=== PATIENT | female | born 1955 | race Caucasian/White ===

== ENCOUNTER → 2016-11-27 | Outpatient (CLI) | payer BC | END | disposition home or self-care (01) | LOC: SURG 10:14 | PROVIDERS: ATTEND Anesthesiology Pain Medicine | DX: M51.36 Other intervertebral disc degeneration, lumbar region (principal); M47.816 Spondylosis without myelopathy or radiculopathy, lumbar region; G89.4 Chronic pain syndrome; M79.1 Myalgia; F11.20 Opioid dependence, uncomplicated | CPT/HCPCS: 99204 ==

== ENCOUNTER → 2017-05-19 | Outpatient (CLI) | payer BC | END | disposition home or self-care (01) | LOC: SURG 13:46 | PROVIDERS: ATTEND Anesthesiology Pain Medicine | DX: M51.36 Other intervertebral disc degeneration, lumbar region (principal); M47.816 Spondylosis without myelopathy or radiculopathy, lumbar region; F41.9 Anxiety disorder, unspecified | CPT/HCPCS: 99204 ==

== ENCOUNTER 2017-11-06 19:04 | Emergency (ER) | payer MEDICARE, BC ==
[~2017-11-06] VITALS: Ht 157.5 cm; Wt 76.2 kg
[2017-11-06 19:10] VITALS: BP 165/68
--- NOTE | 2017-11-06 19:12 | ED.ADGEN ---
Past History Past Medical History: Other Adult General Chief Complaint Chief Complaint ".. I got the rash under my breast and down here under my belly fat .. and groin area... I ve been putting burnt flour on it.. but it not gone away... and I got this breast nodule under this lt. breast.. it been there more than 10 yrs.. " HPI HPI Patient is a 61 year old female who presents with above hx and complaints Lexie like rash and inflammation under both dependent breast, abdomen pannus, and groin area. Patient denies any history of diabetes. Patient has been applying [place] flower to area. Patient denies any history of immunosuppression. Patient had travel or specific ill contacts. Patient had this rash periodically in the past. Patient also concerned about a nodule approximately 1 cm under left breast that has been there for more than 10 years. Patient has had cellulitis in the past. Patient is unable take sulfa or Bactrim because of allergy. Patient also expresses an allergy to penicillin. Patient has taken Keflex in the past without problems. Patient normally follows with Dr. Cervantes Review of Systems Review of Systems Constitutional: Denies fever or chills [] Eyes: Denies change in visual acuity, redness, or eye pain [] HENT: Denies nasal congestion or sore throat [] Respiratory: Denies cough or shortness of breath []. Complains of left breast nodule Cardiovascular: No additional information not addressed in HPI [] GI: Denies abdominal pain, nausea, vomiting, bloody stools or diarrhea [] : Denies dysuria or hematuria [] Musculoskeletal: Denies back pain or joint pain [] Integument: Complaints of rash . Neurologic: Denies headache, focal weakness or sensory changes [] Endocrine: Denies polyuria or polydipsia [] All other systems were reviewed and found to be within normal limits, except as documented in this note. Family History Family History Noncontributory Current Medications Current Medications Current Medications Medications (Trade) Dose Ordered Sig/Deepali Start Time Stop Time Status Last Admin Dose Admin Cephalexin HCl (Keflex) 500 mg 1X ONCE 11/06/17 19:45 11/06/17 19:47 DC 11/06/17 20:46 500 MG Fluconazole (Diflucan) 100 mg 1X ONCE 11/06/17 19:45 11/06/17 19:46 DC 11/06/17 20:46 100 MG Allergies Allergies Allergies Coded Allergies Type Severity Reaction Last Updated Verified Penicillins Allergy Intermediate Rash 11/06/17 Yes Sulfa (Sulfonamide Antibiotics) Allergy Intermediate 11/06/17 Yes codeine Allergy Intermediate 11/06/17 Yes meperidine Allergy Intermediate 11/06/17 Yes morphine Allergy Intermediate 11/06/17 Yes tramadol Allergy Intermediate 11/06/17 Yes Physical Exam Physical Exam Constitutional: Moderately acute distress, non-toxic appearance. [] HENT: Normocephalic, atraumatic, bilateral external ears normal, oropharynx moist, no oral exudates, nose normal. [] Eyes: PERRLA, EOMI, conjunctiva normal, no discharge. [] Neck: Normal range of motion, no tenderness, supple, no stridor. [] Cardiovascular:Heart rate regular rhythm, no murmur [] Lungs & Thorax: Bilateral breath sounds equal apex with scattered wheezes on auscultation []left breast has 1 cm nodule at 6:00. There is no dimpling of skin of breast. Axillary adenopathy.. No discharge from nipple. Does have area of cellulitis as per history of present illness Abdomen: Bowel sounds normal, soft, no tenderness, no masses, no pulsatile masses. [] Obese. Skin: Warm, dry, no erythema, Lexie like rash/cellulitis as per history of present illness Back: No tenderness, no CVA tenderness. [] Extremities: No tenderness, no cyanosis, no clubbing, ROM intact, no edema. [] Neurologic: Alert and oriented X 3, normal motor function, normal sensory function, no focal deficits noted. [] Psychologic: Affect anxious, judgement normal, mood normal. [] Current Patient Data Vital Signs Vital Signs Date Time Temp Pulse Resp B/P (MAP) Pulse Ox O2 Delivery O2 Flow Rate FiO2 11/06/17 19:10 98.0 97 16 98 Room Air Lab Results Laboratory Tests Test 11/06/17 20:30 Urine Collection Type Void Urine Color Straw Urine Clarity Clear Urine pH 6.5 Urine Specific [place] 1.010 Urine Protein Neg (NEG-TRACE) Urine Glucose (UA) Neg mg/dL (NEG) Urine Ketones (Stick) Neg mg/dL (NEG) Urine Blood Neg (NEG) Urine Nitrite Neg (NEG) Urine Bilirubin Neg (NEG) Urine Urobilinogen Dipstick 0.2 mg/dL (0.2 mg/dL) Urine Leukocyte Esterase Neg (NEG) Urine RBC 0 /HPF (0-2) Urine WBC Occ /HPF (0-4) Urine Squamous Epithelial Cells Few /LPF Urine Bacteria Few /HPF (0-FEW) EKG EKG [] Radiology/Procedures Radiology/Procedures [] Course & Med Decision Making Course & Med Decision Making Pertinent Labs and Imaging studies reviewed. (See chart for details) Patient to wash areas of rash at least 4 times a day. With soap and water. After washing apply Lotrisone cream twice a day. Patient take Keflex 500 mg 3 times a day for 7 days. Patient to take Diflucan for 3 days after completing the Keflex. Patient follow-up primary care. Patient return if any concerns. Recommend patient get a lumpectomy of noted under left breast. Patient must follow-up her primary care. [] Final Impression Final Impression 1. Skin Rash - breast and pannus cleavage- Suspect Yeast 2. Breast nodule- Present > 10 yrs. 3. Dysuria Dragon Disclaimer Dragon Disclaimer This electronic medical record was generated, in whole or in part, using a voice recognition dictation system. YANCY REA MD Nov 06, 2017 19:12
[2017-11-06] MEDS ORDERED: FLUCONAZOLE 100 MG TABLET. PO ONE (19:45)
[2017-11-06] MEDS ORDERED: CEPHALEXIN 250 MG CAPSULE PO ONE (19:45)
[2017-11-06] MEDS ORDERED: CEPH-264 PO (19:49)
[2017-11-06] MEDS ORDERED: FLUC100T7 PO (19:49)
[2017-11-06] MEDS ORDERED: CLOT15CR3 TP (19:49)
[2017-11-06 21:01] LABS: BACTERIA,URINE FEW /HPF (0-FEW); BILIRUBIN,URINE NEG (NEG); CLARITY,URINE CLEAR; COLOR,URINE STRAW; GLUCOSE,URINE NEG (NEG); NITRITE,URINE NEG (NEG); RBC,URINE 0 /HPF (0-2); SQUAMOUS EPITHELIAL CELL,UR FEW /LPF; UROBILINOGEN,URINE 0.2 mg/dL (0.2 mg/dL); WBC,URINE OCC /HPF (0-4)
== END 2017-11-06 21:27 | disposition home or self-care (01) ==
LOC: ER 19:04
DX: N63.20 Unspecified lump in the left breast, unspecified quadrant (principal); R21 Rash and other nonspecific skin eruption; R30.0 Dysuria; Z88.0 Allergy status to penicillin; Z88.2 Allergy status to sulfonamides; Z88.5 Allergy status to narcotic agent; Z88.6 Allergy status to analgesic agent; Z88.8 Allergy status to other drugs, medicaments and biological substances
CPT/HCPCS: 81001; 99283

== ENCOUNTER → 2017-11-30 | Outpatient (CLI) | payer MEDICARE, BC ==
[2017-11-06 19:10] VITALS: BP 165/68
[~2017-11-30] MED LIST: CEPH-264 PO; CLOT15CR3 TP; FLUC100T7 PO
--- NOTE | 2017-12-01 16:11 | RAD ---
DATE: 11/30/2017 EXAM: MAMMO [facility] SCREENING BILATERAL HISTORY: Routine screening COMPARISON: Baseline study This study was interpreted with the benefit of Computerized Aided Detection (CAD). Breast Density: FATTY The breast parenchyma is primarily fatty replaced. Breast parenchyma level density A. FINDINGS: 2-D and 3-D tomosynthesis imaging was performed in CC and MLO projections. On the cc projection there is a dense nodule partially visualized far posteriorly in the medial aspect of the left breast. The CC tomosynthesis images indicates that it lies inferiorly. This is not visible on the oblique view, apparently due to its far posterior position. No other unusual breast densities are seen. Benign type calcifications are present in both breasts. No suspicious microcalcifications are evident. IMPRESSION: Posteromedial left breast nodule. Diagnostic mammograms including a straight mediolateral view in an attempt to visualize the posterior extent of this nodule is suggested. Sonographic evaluation will also likely be indicated. BI-RADS CATEGORY: 0 INCOMPLETE: NEEDS ADDITIONAL IMAGING EVALUATION AND/OR PRIOR MAMMOGRAMS FOR COMPARISON. RECOMMENDED FOLLOW-UP: ADD ADDITIONAL IMAGING PQRS compliance statement: Patient information was entered into a reminder system with a target due date for the next mammogram. Mammography is a sensitive method for finding small breast cancers, but it does not detect them all and is not a substitute for careful clinical examination. A negative mammogram does not negate a clinically suspicious finding and should not result in delay in biopsying a clinically suspicious abnormality. "Our facility is accredited by the [employer] Mammography Program."
== END | disposition home or self-care (01) ==
LOC: MAMMO 12:44
PROVIDERS: ATTEND Physician Assistant
DX: Z12.31 Encounter for screening mammogram for malignant neoplasm of breast (principal); N63.24 Unspecified lump in the left breast, lower inner quadrant
CPT/HCPCS: 77063; 77067

== ENCOUNTER 2017-12-19 18:21 | Emergency (ER) | payer MEDICARE, BC ==
[~2017-12-19] VITALS: Ht 157.5 cm; Wt 76.2 kg
[2017-12-19 18:22] VITALS: BP 156/94
--- NOTE | 2017-12-19 18:28 | ED.ADGEN ---
Past History Past Medical History: Other Past Surgical History: Cholecystectomy Alcohol Use: None Drug Use: None Adult General Chief Complaint Chief Complaint ".. I broke a picture frame of my grand children and I put the glass in a trash bag... but I forgot I had the glass in it ... and I went to stuff some paper into the bag.. and cut my Rt wrist on the glass.. it bled like crazy at home. ..." HPI HPI Patient is a 62 year old female who presents with 6 cm, laceration to Rt. forearm. Pt. is right hand dominate. Pt. does not remember last tetanus. Pt. distal neurovascular intact. Ulnar, Median and Radial intact sensory and motor. Flexion and extension intact in hand. Capillary refill less than 2 seconds in finger tips. Does appear to cut into SQ tissue. Pt. normally follows with Dr. Cervantes. No hx immunosuppression. Once did get a rash with PCN, but has taken amoxicillin in past without problems. No recent travel or ill contacts. Review of Systems Review of Systems Constitutional: Denies fever or chills [] Eyes: Denies change in visual acuity, redness, or eye pain [] HENT: Denies nasal congestion or sore throat [] Respiratory: Denies cough or shortness of breath [] Cardiovascular: No additional information not addressed in HPI [] GI: Denies abdominal pain, nausea, vomiting, bloody stools or diarrhea [] : Denies dysuria or hematuria [] Musculoskeletal: Denies back pain or joint pain [] Integument: Denies rash or skin lesions []Complaints of Rt. wrist laceration. Neurologic: Denies headache, focal weakness or sensory changes [] Endocrine: Denies polyuria or polydipsia [] All other systems were reviewed and found to be within normal limits, except as documented in this note. Family History Family History Non-contributory Current Medications Current Medications Current Medications Medications (Trade) Dose Ordered Sig/Deepali Start Time Stop Time Status Last Admin Dose Admin Bupivacaine HCl (Sensorcaine Mpf 0.5%) 10 ml 1X ONCE 12/19/17 18:30 12/19/17 18:34 DC 12/19/17 18:30 10 ML Bupivacaine HCl (Sensorcaine Pf 0.75%) 10 ml STK-MED ONCE 12/19/17 18:56 12/19/17 18:57 DC Bupivacaine HCl/ Epinephrine Bitart (Sensorcain-Mpf Epi 0.5%-1:412259) 30 ml 1X ONCE 12/19/17 19:00 12/19/17 19:08 DC Cephalexin HCl (Keflex) 500 mg 1X ONCE 12/19/17 19:30 12/19/17 19:35 DC 12/19/17 19:31 500 MG Lidocaine HCl 20 ml 1X ONCE 12/19/17 18:30 12/19/17 18:34 DC 12/19/17 18:30 20 ML Lidocaine/ Epinephrine (Xylocaine 1%-Epi 1:100,000) 20 ml 1X ONCE 12/19/17 19:00 12/19/17 19:08 DC Neomycin/ Polymyxin/ Bacitracin (Triple Antibiotic Ointment) 4 pkt 1X ONCE 12/19/17 19:15 12/19/17 19:16 DC 12/19/17 19:10 4 PKT Neomycin/ Polymyxin/ Bacitracin (Triple Antibiotic) 4 ana 1X ONCE 12/19/17 19:00 12/19/17 19:14 DC Tetanus/ Diphtheria Toxoids Adsorbed (Tenivac Vial) 0.5 ml ONCE ONCE 12/19/17 18:30 12/19/17 18:34 DC 12/19/17 18:56 0.5 ML Allergies Allergies Allergies Coded Allergies Type Severity Reaction Last Updated Verified Penicillins Allergy Intermediate Rash 11/06/17 Yes Sulfa (Sulfonamide Antibiotics) Allergy Intermediate 11/06/17 Yes codeine Allergy Intermediate 11/06/17 Yes meperidine Allergy Intermediate 11/06/17 Yes morphine Allergy Intermediate 11/06/17 Yes tramadol Allergy Intermediate 11/06/17 Yes Physical Exam Physical Exam Constitutional: Moderately distressed, non-toxic appearance. [] HENT: Normocephalic, atraumatic, bilateral external ears normal, oropharynx moist, no oral exudates, nose normal. Red hair. Eyes: PERRLA, EOMI, conjunctiva normal, no discharge. [] Neck: Normal range of motion, no tenderness, supple, no stridor. [] Cardiovascular:Heart rate regular rhythm, no murmur [] Lungs & Thorax: Bilateral breath sounds equal at apexes with few scattered wheezes on auscultation [] Abdomen: Bowel sounds normal, soft, no tenderness, no masses, no pulsatile masses. [] Old surgery scars. Skin: Warm, dry, no erythema, no rash. [] Laceration Rt. wrist as per HPI. Back: No tenderness, no CVA tenderness. [] Extremities: No tenderness, no cyanosis, no clubbing, ROM intact, no edema. [] Neurologic: Alert and oriented X 3, normal motor function, normal sensory function, no focal deficits noted. [] Psychologic: Affect normal, judgement normal, mood normal. [] Current Patient Data Vital Signs Vital Signs Date Time Temp Pulse Resp B/P (MAP) Pulse Ox O2 Delivery O2 Flow Rate FiO2 12/19/17 18:22 97.6 109 20 99 Room Air EKG EKG [] Radiology/Procedures Radiology/Procedures My interpretation of forearm laceration shows soft tissue defect. No obvious glass. ( Pt. still informed glass could be still missed. )[] Course & Med Decision Making Course & Med Decision Making Pertinent Labs and Imaging studies reviewed. (See chart for details) Procedure note: Rings removed. Wound washed surgical soap and water. Irrigated extensively in range of motion with normal saline. 6 x 4-0 Prolene sutures placed. Dressing applied with Triple antibiotic ointment. Keep clean and dry. Keflex 500 three times a day x 5 days. (Reviewed risk of cross reaction with PCN. Sutures out 10 days. Return if any concerns. Dressing to be removed immediately if wet or soiled. Polysporin 3 to 4 x day. Return if any concerns. Monitor closely for any signs of infection. Pt. informed she will have a scar. Revision later after scar contraction if concern about appearance. Tetanus up dated. [] Final Impression Final Impression 1. Rt wrist laceration- 6 cm[] Dragon Disclaimer Dragon Disclaimer This electronic medical record was generated, in whole or in part, using a voice recognition dictation system. YANCY REA MD Dec 19, 2017 18:28
[2017-12-19] MEDS ORDERED: TETANUS AND DIPHTHERIA TOX/PF 0.5 ML VIAL. VAX IM ONE (18:30)
[2017-12-19] MEDS ORDERED: BUPIVACAINE MPF 0.5% 10 ML VIAL. IJ ONE (18:30)
[2017-12-19] MEDS ORDERED: LIDOCAINE 2% 20 ML VIAL. IJ ONE (18:30)
[2017-12-19] MEDS ORDERED: LIDOCAINE 1%/EPI 1:100,000 20 ML VIAL. ONE (18:55)
[2017-12-19] MEDS ORDERED: BUPIVACAINE PF 0.75% 10 ML VIAL ONE (18:56)
[2017-12-19] MEDS ORDERED: BUPIVAC MPF-EPI 0.5%-1:200000 30 ML VIAL. ONE (18:57)
[2017-12-19] MEDS ORDERED: NEOMYCIN/BACITRAC/POLY TOPICAL OINTMENT 28GM TUBE. TP ONE (19:00)
[2017-12-19] MEDS ORDERED: NEOMY/BACITR/POLYMYXIN OINT PACKET. TP ONE ×3 (19:00→19:15)
[2017-12-19] MEDS ORDERED: LIDOCAINE 1%/EPI 1:100,000 20 ML VIAL. IJ ONE (19:00)
[2017-12-19] MEDS ORDERED: BUPIVAC MPF-EPI 0.5%-1:200000 30 ML VIAL. IJ ONE (19:00)
[2017-12-19] MEDS ORDERED: CEPH-264 PO (19:25)
[2017-12-19] MEDS ORDERED: CEPHALEXIN 250 MG CAPSULE PO ONE (19:30)
--- NOTE | 2017-12-19 20:48 | RAD ---
Right forearm 2 views. HISTORY: Laceration anterior wrist, cut by glass AP and lateral views were taken of the right forearm. There is soft tissue injury anteriorly distally. There is no acute fracture. There is no opaque foreign body. IMPRESSION: 1. No fracture or osseous abnormality noted in the right forearm. Electronically signed by: Omar Borges MD (12/19/2017 8:45 PM) [facility]
== END 2017-12-19 19:30 | disposition home or self-care (01) ==
LOC: ER 18:21
DX: S61.511A Laceration without foreign body of right wrist, initial encounter (principal); W25.XXXA Contact with sharp glass, initial encounter; Y93.89 Activity, other specified; Y92.89 Other specified places as the place of occurrence of the external cause; Y99.8 Other external cause status; Z88.0 Allergy status to penicillin; Z88.2 Allergy status to sulfonamides; Z88.5 Allergy status to narcotic agent; Z88.8 Allergy status to other drugs, medicaments and biological substances
CPT/HCPCS: 12002; 73090; 90471; 90714; 99284-25; J2001

== ENCOUNTER 2017-12-22 14:53 | Emergency (ER) | payer MEDICARE, BC ==
[~2017-12-22] VITALS: Ht 157.5 cm; Wt 80.7 kg
[2017-12-22 15:13] VITALS: BP 127/79
--- NOTE | 2017-12-22 15:23 | PHYS DOC ---
Past History Past Medical History: Other Past Surgical History: Cholecystectomy Alcohol Use: None Drug Use: None Adult General Chief Complaint Chief Complaint: SKIN PROBLEM [facility] Patient is a 62 year old female who presents with complaining of right arm pain and redness after having tetanus shot 4 days ago in this emergency room. Patient was seen on December 19 for forearm laceration and had the tetanus shot with erythema and tenderness of area of her shot and right arm without fever and chills focal neuro deficit, history of reaction to tetanus vaccine patient currently taking Keflex for her laceration. Review of Systems Review of Systems Constitutional: Denies fever or chills [] Eyes: Denies change in visual acuity, redness, or eye pain [] HENT: Denies nasal congestion or sore throat [] Respiratory: Denies cough or shortness of breath [] Cardiovascular: No additional information not addressed in HPI [] GI: Denies abdominal pain, nausea, vomiting, bloody stools or diarrhea [] : Denies dysuria or hematuria [] Musculoskeletal: Denies back pain or joint pain [] Integument: Denies rash , reports skin lesions [] Neurologic: Denies headache, focal weakness or sensory changes [] Endocrine: Denies polyuria or polydipsia [] All other systems were reviewed and found to be within normal limits, except as documented in this note. Allergies Allergies Allergies Coded Allergies Type Severity Reaction Last Updated Verified Penicillins Allergy Intermediate Rash 11/06/17 Yes Sulfa (Sulfonamide Antibiotics) Allergy Intermediate 11/06/17 Yes codeine Allergy Intermediate 11/06/17 Yes meperidine Allergy Intermediate 11/06/17 Yes morphine Allergy Intermediate 11/06/17 Yes tramadol Allergy Intermediate 11/06/17 Yes Physical Exam Physical Exam Constitutional: Well developed, well nourished, no acute distress, non-toxic appearance. [] HENT: Normocephalic, atraumatic. [] Eyes: PERRLA, EOMI, conjunctiva normal, no discharge. [] Neck: Normal range of motion, no tenderness, supple, no stridor. [] Cardiovascular:Heart rate regular rhythm, no murmur [] Lungs & Thorax: Bilateral breath sounds clear to auscultation [] Skin: Warm, dry, 5 x 5 cm area of erythema in right arm with central fibrotic pattern without fluctuation or sign of abscess Back: No tenderness, no CVA tenderness. [] Extremities: No tenderness, no cyanosis, no clubbing, ROM intact, no edema. [] Neurologic: Alert and oriented X 3, normal motor function, normal sensory function, no focal deficits noted. [] Psychologic: Affect normal, judgement normal, mood normal. [] Current Patient Data Vital Signs Vital Signs Date Time Temp Pulse Resp B/P (MAP) Pulse Ox O2 Delivery O2 Flow Rate FiO2 12/22/17 15:13 97.6 87 18 98 Room Air EKG EKG [] Radiology/Procedures Radiology/Procedures [] Course & Med Decision Making Course & Med Decision Making Evaluation of patient in ER showed 63-year-old female patient with erythema and tenderness of tetanus injection. Patient currently taking Keflex and instructed to continue her medication and apply warm moist pad on her arm and return to ER if not getting better. Dragon Disclaimer Dragon Disclaimer This electronic medical record was generated, in whole or in part, using a voice recognition dictation system. Departure Departure: Impression: Primary Impression: Right arm cellulitis Disposition: HOME, SELF-CARE (at 1522) Condition: STABLE Referrals: MONE TUTTLE (PCP) Patient Instructions: Cellulitis Additional Instructions: Continue home medication Apply moist heat pad on the affected area Return to emergency room if not getting better GILMA SPAIN MD Dec 22, 2017 15:23
== END 2017-12-22 15:29 | disposition home or self-care (01) ==
LOC: ER 14:53
DX: L03.113 Cellulitis of right upper limb (principal); Z88.0 Allergy status to penicillin; Z88.2 Allergy status to sulfonamides; Z88.5 Allergy status to narcotic agent; Z88.6 Allergy status to analgesic agent; Z88.8 Allergy status to other drugs, medicaments and biological substances
CPT/HCPCS: 99281

== ENCOUNTER → 2017-12-22 | Outpatient (CLI) | payer MEDICARE, BC ==
[2017-12-19 18:22] VITALS: BP 156/94
--- NOTE | 2017-12-22 14:43 | RAD ---
DATE: 12/22/2017 EXAM: DIGITAL DIAGNOSTIC LT, BREAST LEFT HISTORY: Abnormal screening study COMPARISON: 11/30/2017 This study was interpreted with the benefit of Computerized Aided Detection (CAD). Breast Density: FATTY The breast parenchyma is primarily fatty replaced. Breast parenchyma level density A. FINDINGS: Additional views of the left breast confirm the presence of a 3.5 cm smooth nodule at the level of the intramammary fold just medial to the midline. Its posterior margin is not completely included on this study. No microcalcifications are seen. Left breast ultrasound, 12/22/2017: A targeted ultrasound exam was performed of the palpable nodule along the left inframammary fold at the 6:30 location. The patient reports this lump has been present for many years. It is smooth and oval-shaped measuring 2.8 x 3.3 x 1.9 cm. It lies in the subcutaneous tissues of the abdominal wall along the inferior margin of the inferior mammary fold. It does not appear to arise within the breast. It cannot be clearly from the undersurface of the skin. There are heterogeneous low to medium level internal echoes. There is internal color flow indicating a solid component. IMPRESSION: 1. The palpable mass along the inferior aspect of the left inframammary fold does not arise from the breast. It is centered in the subcutaneous location and appears solid. The sonographic features are nonspecific. Reportedly surgical resection is planned. 2. No evidence of malignancy within the left breast. In regards to the left breast- BI-RADS CATEGORY: 2 BENIGN FINDING(S) RECOMMENDED FOLLOW-UP: 12M 12 MONTH FOLLOW-UP PQRS compliance statement: Patient information was entered into a reminder system with a target due date for the next mammogram. Mammography is a sensitive method for finding small breast cancers, but it does not detect them all and is not a substitute for careful clinical examination. A negative mammogram does not negate a clinically suspicious finding and should not result in delay in biopsying a clinically suspicious abnormality. "Our facility is accredited by the [employer] Mammography Program."
== END | disposition home or self-care (01) ==
LOC: MAMMO 13:33
PROVIDERS: ATTEND Physician Assistant
DX: N60.82 Other benign mammary dysplasias of left breast (principal)
CPT/HCPCS: 76641; 77065

== ENCOUNTER 2017-12-28 14:19 | Emergency (ER) | payer MEDICARE, BC ==
[~2017-12-28] VITALS: Ht 157.5 cm; Wt 80.7 kg
[2017-12-28 14:34] VITALS: BP 165/88
--- NOTE | 2017-12-28 14:38 | PHYS DOC ---
Past History Past Medical History: Other Past Surgical History: Cholecystectomy Alcohol Use: None Drug Use: None Adult General Chief Complaint Chief Complaint: SUTURE/STAPLE REMOVAL [facility] Patient is a 62 year old female who presents for suture removal. Patient had suture placement in this emergency room on right wrist 9 days ago and denies discharge or fever and chills. Review of Systems Review of Systems Constitutional: Denies fever or chills [] Eyes: Denies change in visual acuity, redness, or eye pain [] HENT: Denies nasal congestion or sore throat [] Respiratory: Denies cough or shortness of breath [] Cardiovascular: No additional information not addressed in HPI [] GI: Denies abdominal pain, nausea, vomiting, bloody stools or diarrhea [] : Denies dysuria or hematuria [] Musculoskeletal: Denies back pain or joint pain [] Integument: Denies rash or skin lesions [] Neurologic: Denies headache, focal weakness or sensory changes [] Endocrine: Denies polyuria or polydipsia [] All other systems were reviewed and found to be within normal limits, except as documented in this note. Allergies Allergies Allergies Coded Allergies Type Severity Reaction Last Updated Verified Penicillins Allergy Intermediate Rash 11/06/17 Yes Sulfa (Sulfonamide Antibiotics) Allergy Intermediate 11/06/17 Yes codeine Allergy Intermediate 11/06/17 Yes meperidine Allergy Intermediate 11/06/17 Yes morphine Allergy Intermediate 11/06/17 Yes tramadol Allergy Intermediate 11/06/17 Yes Physical Exam Physical Exam Constitutional: Well developed, well nourished, no acute distress, non-toxic appearance. [] HENT: Normocephalic, atraumatic] Eyes: PERRLA, EOMI, conjunctiva normal, no discharge. [] Neck: Normal range of motion, no tenderness, supple, no stridor. [] Cardiovascular:Heart rate regular rhythm, no murmur [] Lungs & Thorax: Bilateral breath sounds clear to auscultation [] Skin: Warm, dry, no erythema, no rash. [] Back: No tenderness, no CVA tenderness. [] Extremities: Right distal with 6 healed suture in dorsal side of his with mild erythema without sign of infection, no tenderness, no cyanosis, no clubbing, ROM intact, no edema. [] Neurologic: Alert and oriented X 3, normal motor function, normal sensory function, no focal deficits noted. [] Psychologic: Affect normal, judgement normal, mood normal. [] Current Patient Data Vital Signs Vital Signs Date Time Temp Pulse Resp B/P (MAP) Pulse Ox O2 Delivery O2 Flow Rate FiO2 12/28/17 14:34 98.3 94 18 97 Room Air EKG EKG [] Radiology/Procedures Radiology/Procedures [] Course & Med Decision Making Course & Med Decision Making 6 healed sutures was removed by FORM GRADER OPERATOR from right wrist. Dragon Disclaimer Dragon Disclaimer This electronic medical record was generated, in whole or in part, using a voice recognition dictation system. Departure Departure: Impression: Primary Impression: Encounter for removal of sutures Disposition: HOME, SELF-CARE Condition: STABLE Referrals: MONE TUTTLE (PCP) Patient Instructions: Suture Removal Additional Instructions: Keep wound clean and dry GILMA SPAIN MD Dec 28, 2017 14:38
== END 2017-12-28 14:47 | disposition home or self-care (01) ==
LOC: ER 14:19
DX: S61.511D Laceration without foreign body of right wrist, subsequent encounter (principal); Z88.0 Allergy status to penicillin; Z88.2 Allergy status to sulfonamides; Z88.5 Allergy status to narcotic agent; Z88.6 Allergy status to analgesic agent; Z88.8 Allergy status to other drugs, medicaments and biological substances; X58.XXXD Exposure to other specified factors, subsequent encounter
CPT/HCPCS: 99281